=== PATIENT | male | born 1975 | race Caucasian/White ===

== ENCOUNTER 2017-11-16 00:42 | Emergency (ER) | payer BC ==
[~2017-11-16] VITALS: Ht 182.9 cm; Wt 79.0 kg
[2017-11-16 01:14] LABS: HEMATOCRIT 47.9 % (38.0-50.0); HEMOGLOBIN 16.7 G/DL (12.5-16.6); MCH 28.9 PG (29.0-34.0); MCHC 34.9 G/DL (30.0-36.0); MCV 82.9 FL (86-99); PLATELET COUNT 276 K/uL (156-360); RBC DIS.WIDTH-CV 12.5 % (11.8-14.6); RBC DIS.WIDTH-SD 37.7 % (39-53); RED BLOOD COUNT 5.78 M/uL (4.00-5.50); WHITE BLOOD COUNT 11.1 K/uL (4.1-10.2)
[2017-11-16 01:25] LABS: ALBUMIN 4.6 g/dL (3.2-4.8); CHLORIDE 107 mEq/L (99-109); POTASSIUM 3.8 mEq/L (3.7-5.4); SODIUM 141 mEq/L (136-147)
[2017-11-16 01:28] LABS: GLUCOSE 124 mg/dL (70-99); TOTAL PROTEIN 7.7 g/dL (6.4-8.3)
[2017-11-16 01:30] LABS: TOTAL BILIRUBIN 0.6 mg/dL (0.0-1.0)
[2017-11-16 01:31] LABS: ALKALINE PHOSPHATASE 56 IU/L (3-129); CREATININE 1.1 mg/dL (0.6-1.3)
[2017-11-16 01:32] LABS: UREA NITROGEN (BUN) 16 mg/dL (9-23)
[2017-11-16 01:33] LABS: AST (GOT) 16 IU/L (2-34)
[2017-11-16 01:34] LABS: ALT (GPT) 17 IU/L (3-49); GFR ESTIMATE (CALCULATED) > 59 mL/min/ (58.99-99999)
[2017-11-16 03:42] LABS: APPEARANCE SL.HAZY ((CLEAR)); BILIRUBIN NEGATIVE; BLOOD NEGATIVE; COLOR YELLOW ((YELLOW)); GLUCOSE (STRIP) NEGATIVE; KETONES 5; LEUKOCYTES NEGATIVE; NITRITE NEGATIVE; PROTEIN (STRIP) 30; SPECIFIC GRAVITY 1.028 (1.000-1.030); UROBILINOGEN 0.2 MG/DL (0.2-1.0)
[2017-11-16 03:45] LABS: BACTERIA NONE SEEN /HPF; CALCIUM OXALATE CRYSTALS 2+ /HPF; EPITHELIAL CELLS NONE SEEN /HPF; MUCUS 2+ /LPF; RED BLOOD CELLS 30-40 /HPF (0-5); UCUL ADDED? NO; WHITE BLOOD CELLS 0-5 /HPF (0-5)
[2017-11-16] MEDS ORDERED: MOTRIN600 MG PO (05:22)
[2017-11-16] MEDS ORDERED: FLOMAX0.4 MG PO (05:22)
[2017-11-16 05:43] VITALS: BP 134/84
== END 2017-11-16 05:48 | disposition home or self-care (01) ==
LOC: EME 00:42
DX: N20.1 Calculus of ureter (principal); Z88.0 Allergy status to penicillin
CPT/HCPCS: 74176; 80053; 81003; 85027; 99281; 99284

== ENCOUNTER 2018-04-03 08:52 | Emergency (ER) | payer BC ==
[~2018-04-03] VITALS: Ht 182.9 cm; Wt 79.0 kg
[~2018-04-03 08:52] MED LIST: FLOMAX0.4 MG PO; MOTRIN600 MG PO
[2018-04-03 09:30] LABS: HEMATOCRIT 45.5 % (38.0-50.0); HEMOGLOBIN 15.3 G/DL (12.5-16.6); MCH 28.7 PG (29.0-34.0); MCHC 33.6 G/DL (30.0-36.0); MCV 85.2 FL (86-99); PLATELET COUNT 232 K/uL (156-360); RBC DIS.WIDTH-CV 12.6 % (11.8-14.6); RED BLOOD COUNT 5.34 M/uL (4.00-5.50); WHITE BLOOD COUNT 6.5 K/uL (4.1-10.2)
[2018-04-03 09:40] LABS: ALBUMIN 4.2 g/dL (3.2-4.8)
[2018-04-03 09:41] LABS: CHLORIDE 106 mEq/L (99-109); POTASSIUM 4.1 mEq/L (3.7-5.4); SODIUM 139 mEq/L (136-147)
[2018-04-03 09:43] LABS: GLUCOSE 107 mg/dL (70-99); TOTAL PROTEIN 7.2 g/dL (6.4-8.3)
[2018-04-03 09:45] LABS: TOTAL BILIRUBIN 0.5 mg/dL (0.0-1.0)
[2018-04-03 09:46] LABS: ALKALINE PHOSPHATASE 52 IU/L (3-129)
[2018-04-03 09:47] LABS: GFR ESTIMATE (CALCULATED) > 59 mL/min/ (58.99-99999)
[2018-04-03 09:48] LABS: AST (GOT) 12 IU/L (2-34); UREA NITROGEN (BUN) 12 mg/dL (9-23)
[2018-04-03 09:50] LABS: ALT (GPT) 15 IU/L (3-49)
[2018-04-03 10:35] LABS: APPEARANCE SL.HAZY ((CLEAR)); BILIRUBIN NEGATIVE; BLOOD NEGATIVE; COLOR YELLOW ((YELLOW)); GLUCOSE (STRIP) NEGATIVE; KETONES NEGATIVE; LEUKOCYTES NEGATIVE; NITRITE NEGATIVE; PROTEIN (STRIP) NEGATIVE; SPECIFIC GRAVITY 1.027 (1.000-1.030); UROBILINOGEN 0.2 MG/DL (0.2-1.0)
[2018-04-03 10:50] LABS: BACTERIA RARE /HPF; EPITHELIAL CELLS RARE /HPF; MUCUS 3+ /LPF; RED BLOOD CELLS NONE SEEN /HPF (0-5); UCUL ADDED? NO; WHITE BLOOD CELLS 0-5 /HPF (0-5)
[2018-04-03 10:51] LABS: AMORPHOUS URATES CRYSTALS RARE
[2018-04-03] MEDS ORDERED: MIRALAX17 GM PO (12:37)
[2018-04-03 13:08] VITALS: BP 133/97
== END 2018-04-03 13:10 | disposition home or self-care (01) ==
LOC: EME 08:52
DX: K59.00 Constipation, unspecified (principal); Z88.0 Allergy status to penicillin
CPT/HCPCS: 74177; 80053; 81003; 85027; 87086; 99281; 99284; J7030